=== PATIENT | male | born 1940 | race Caucasian/White ===

== ENCOUNTER 2016-08-26 10:45 | Inpatient (IN) | payer MEDICARE, OTHER ==
--- NOTE | ~2016-08-26 | DS ---
Discharge Summary [address] [facility] [place] [address] NAME: VENUS DENNEY : 40 STATUS : DIS IN PAT#: [id number] AGE: 76 ADM/REG DATE : 08/26/16 MR#: [id number] REPORT SERV DATE: 08/29/16 DICTATED BY: BRUNA DE LEON DATE: 08/28/16 REPORT STATUS : Draft TRANSCRIBED BY: MODL DATE: 08/28/16 ADMISSION DATE: 08/26/2016 DISCHARGE DATE: 08/28/2016 PRINCIPAL DIAGNOSIS: Acute bronchitis with hypoxemic respiratory failure and fevers. SECONDARY DIAGNOSIS: Chronic kidney disease, stage 4, with metabolic acidosis and compensatory respiratory alkalosis. HISTORY OF PRESENT ILLNESS: Please see Dr. Matt' dictation on 08/26/2016. HOSPITAL COURSE: Admitted with acute respiratory failure, fever, cough, concern for pneumonia, placed on broad-spectrum antibiotics. Based on a portable chest x-ray of questionable quality, a PA and lateral chest x-ray was done the following day which revealed no actual infiltrates whatsoever. The patient meanwhile defervesced. His antibiotics were simplified. He was put on oral steroids. No further wheezing. He was, however, found to have significant metabolic acidosis, which although well compensated, would benefit from bicarbonate supplementation and close followup with Dr. Florian as the patient had been on dialysis in the past. There were no other dialysis indications, and the patient was satisfactory. He met the maximum benefit of hospitalization by 3:30. Oral azithromycin for three additional days and prednisone for three additional days as well. Robitussin with codeine cough suppressant was given, and he was recommended to try home remedies for his acute bronchitis including Vicks VapoRub, portable humidifiers, and hot toddies. He will follow with Dr. Iftikhar Kong in one week and with Dr. Florian in two to four weeks. RUBI/JAMARCUS Bruna De Leon M.D. / [id number] CC: Can Monterroso M.D.
--- NOTE | ~2016-08-26 | HP ---
History And Physical [address] [id number] [facility] [place]. [address] NAME: VENUS DENNEY : 40 STATUS : ADM IN [facility]#: [id number] AGE: 76 ADM/REG DATE : 08/26/16 MR#: [id number] REPORT SERV DATE: 08/27/16 DICTATED BY: PHIL MATT DATE: 08/26/16 REPORT STATUS : Draft TRANSCRIBED BY: JAMARCUS DATE: 08/26/16 DATE OF ADMISSION: 08/26/2016 CHIEF COMPLAINT: Cough. HISTORY OF PRESENT ILLNESS: The patient is a very pleasant 76-year-old white male. He has a history of CAD, previous pacemaker placement, and stage 4 chronic kidney disease. He actually ended up on dialysis in 2013 after his CABG. He had a fistula placed in the left arm. He was on dialysis until 06/2015. He has been off dialysis now since then and has done fairly well. He states for about a month, he was sick, he saw his PCP bout three to four weeks ago and got an antibiotic, some cough syrup, and a shot. He got better and then over the last several days, he started to cough again. He states he has been coughing extensively. It got worse yesterday when he worked outside. He has been wheezing. He has scant sputum production. He does not recall a fever, but he had a fever this morning in the ER at 101.5, I documented it myself. He denies nausea or vomiting. Denies abdominal pain. He does not have chest pain. He has had some pain with coughing. This morning, he tried to put his pants on and slid out of bed onto the floor and was so weak he could not get up, so EMS was called. He does not wear oxygen, but he previously smoked for about 25 years. He currently dips tobacco. He did get a flu shot. He has had a mild sore throat. No real headache and no myalgias. PAST MEDICAL HISTORY: 1. CAD, history of CABG. 2. CKD stage 4, previously on dialysis with left-sided arm fistula. 3. Hypertension. 4. Hyperlipidemia. 5. Secondary hyperparathyroidism. 6. Gout. 7. GERD. 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 9. Pacemaker placement. SOCIAL HISTORY: Previous tobacco use, quit about 20 years ago. Dips tobacco currently. Does not drink alcohol. He is , his is at bedside. FAMILY HISTORY: Negative for CKD. ALLERGIES: POSITIVE FOR HEPARIN. PAST SURGICAL HISTORY: He has had a CABG, a fistula placed in his left arm, pacemaker placement, and multiple stents. HOME MEDICATIONS: Reviewed and attached. REVIEW OF SYSTEMS: Full 10-point review of systems obtained, pertinent positives mentioned in the HPI. History And Physical [address] [address] NAME: VENUS DENNEY : 40 STATUS : ADM IN [facility]#: [id number] AGE: 76 ADM/REG DATE : 08/26/16 MR#: [id number] REPORT SERV DATE: 08/27/16 DICTATED BY: PHIL MATT DATE: 08/26/16 REPORT STATUS : Draft TRANSCRIBED BY: JAMARCUS DATE: 08/26/16 PHYSICAL EXAMINATION: VITAL SIGNS: He is currently about 95/40 with the pulse in the 80s, respiratory rate 20, sats are 94% on room air. GENERAL: Well-developed white male, coughing extensively. HEENT: Normocephalic and atraumatic. Throat is clear. NECK: Supple. HEART: Regular rate and rhythm with a 2/6 systolic ejection murmur. LUNGS: Grossly, he has wheezing, expiratory in all lung reed. He has some discrete crackles at the bases bilaterally, right greater than left. ABDOMEN: Soft, nontender, and nondistended. EXTREMITIES: Warm and dry. He has no peripheral edema. No rashes. Pulses are 2+ at the feet. LABORATORY AND X-RAY DATA: White count is 9, H and H 14 and 42, platelets are 144. ABG, 7.41/31/. Flu swab is negative. CMP: Sodium 144, potassium 4.2, chloride 109, CO2 of 23, BUN and creatinine 31 and 3.86, glucose is 82. LFTs are normal. Chest x-ray portable shows some mild cardiomegaly and a pacemaker, but no obvious infiltrates. EKG shows a paced rhythm. ASSESSMENT/PLAN: 1. Fever with cough, certainly worrisome for pneumonia given he has a fever of 101.5. We will cover him with Rocephin and azithromycin. We will do blood cultures, sputum cultures and check a procalcitonin. We will hydrate him overnight. Given that he has some pretty significant wheezing and coughing, I am going to treat him with some DuoNeb and Solu-Medrol. I am certain that he has some component of chronic obstructive pulmonary disease as he does have a history of longstanding tobacco abuse in the past. 2. Hypotension, mild. We will give him a bolus now. We will hydrate him overnight, but we will be cautious. We will follow his blood pressure, kidney function, and urine output. 3. Chronic kidney disease stage 4. It appears his creatinine is currently at baseline. He was 3.80 in March. We will do serial labs and follow closely, avoid all possible nephrotoxic agents and really, he does all drugs. 4. History of heparin-induced thrombocytopenia. We will avoid all heparin products. I think given that he also has stage 4 CKD, it will be difficult to give him any of the approved anticoagulants. 5. Coronary artery disease with history of CABG. 6. History of pacer. 7. Disposition, pending above. JOI/JAMARCUS Phil Matt M.D. History And Physical [address] [address] NAME: VENUS DENNEY : 40 STATUS : ADM IN [facility]#: [id number] AGE: 76 ADM/REG DATE : 08/26/16 MR#: [id number] REPORT SERV DATE: 08/27/16 DICTATED BY: PHIL MATT DATE: 08/26/16 REPORT STATUS : Draft TRANSCRIBED BY: JAMARCUS DATE: 08/26/16 / [id number] CC: Can Monterroso M.D. Mandeep Grewal, M.D. R. Henry Williams, M.D.
[~2016-08-26 10:45] MED LIST: ALEVE220 MG PO; ALLEGRA180 PO; ASAB PO; BEN25 PO; C25; CLARIT10 PO; CYANO1000T PO; EFFIENT10 PO; LIPITOR40 PO; LOP25; LOP25 PO; LOP50 PO; METAMUCIL CAN7 OZ PO; NEUR100 PO; PCET PO; PLAVIX PO; STOOL SOFTEN100 MG PO; Vitamin B-Twelve PO; ZOCOR20 PO; [UNRECOGNIZED DRUG - REMARK]
[2016-08-26] MEDS ORDERED: TESS PO (10:50)
[2016-08-26] MEDS ORDERED: BRILINTA90 MG PO (10:50)
[2016-08-26] MEDS ORDERED: NEUR100 PO (10:50)
[2016-08-26] MEDS ORDERED: THERGRANM PO (10:50)
[2016-08-26 11:03] LABS: BASOPHILS 0.3 %; BASOPHILS ABSOLUTE 0.03 10/3/uL (0.0-0.16); EOSINOPHILS 2.5 %; EOSINOPHILS ABSOLUTE 0.23 10/3/uL (0.0-0.53); IMMATURE GRANULOCYTES 0.5 %; IMMATURE GRANULOCYTES ABSOLUTE 0.05 10/3/uL (0.0-0.11); LYMPHOCYTES 16.2 %; LYMPHOCYTES ABSOLUTE 1.51 10/3/uL (0.67-4.30); MANUAL DIFF NO %; MEAN CORPUS HGB CONC 33.3 g/dL (32.0-36.0); MEAN CORPUSCULAR HEMOGLOB 33.5 pg (26.0-34.0); MEAN CORPUSCULAR VOLUME 100.5 fL (80-100); MEAN PLATELET VOLUME 10.9 fL (9.2-13.0); MONOCYTES 15.7 %; MONOCYTES ABSOLUTE 1.46 10/3/uL (0.21-1.20); NEUTROPHILS 64.8 %; NEUTROPHILS ABSOLUTE 6.02 10/3/uL (2.02-8.40); PLATELET COUNT 144 10/3/uL (150-400); RBC DISTRIBUTION WIDTH 14.8 % (12.0-16.0); RED CELL COUNT 4.18 10/6/uL (4.7-6.1); WHITE BLOOD CELLS 9.3 10/3/uL (4.5-10.5)
[2016-08-26 11:05] LABS: BE (BASE EXCESS) -4.2 MEQ/L (0 +/- 2.5); CARBOXYHEMOGLOBIN 1.5 % (0-3); HCO3 (ACTUAL BICARBONATE) 19.3 MEQ/L (23-27); HEMOBLOGIN CONTENT 14.1 G/DL (14-18); INSTRUMENT SERIAL # 8087; METHEMOGLOBIN 0.4 % (0-3); O2 CONTENT 18.3 VOL% (18-24); OPERATOR ID 14382; PCO2 (CO2 TENSION) 31 MMHG (35-45); PO2 (O2 TENSION) 68 MMHG (79-93); SAMPLE Arterial; pH 7.41 (7.37-7.43)
[2016-08-26 11:06] LABS: ALLENS TEST Pos
[2016-08-26 11:15] LABS: INFLUENZA A SCREEN NEGATIVE (NEGATIVE); INFLUENZA B SCREEN NEGATIVE (NEGATIVE)
[2016-08-26 11:25] LABS: A/G RATIO 1.1 (0.7-1.9); ALBUMIN 3.6 G/DL (3.5-5.0); ALKALINE PHOSPHATASE 68 U/L (45-117); BUN (BLOOD UREA NITROGEN) 31 MG/DL (6-23); CALCIUM, SERUM 8.9 MG/DL (8.5-10.4); CHLORIDE, SERUM 109 MMOL/L (96-112); CO2 (CARBON DIOXIDE) 23 MMOL/L (24-34); CREATININE 3.86 MG/DL (0.70-1.30); GFR AFRICAN AMERICAN 16 ML/MIN (>=60); GFR NON AFRICAN AMERICAN 14 ML/MIN (>=60); GLOBULIN 3.4 G/DL (2.5-4.1); GLUCOSE, SERUM 82 MG/DL (60-99); POTASSIUM, SERUM 4.2 MMOL/L (3.5-5.3); SGOT(AST) 18 U/L (5-40); SGPT(ALT) 19 U/L (5-65); SODIUM, SERUM 144 MMOL/L (135-148); TOTAL BILIRUBIN 1.6 MG/DL (0-1.2)
[2016-08-27 06:06] LABS: CALCIUM, SERUM 8.1 MG/DL (8.5-10.4); CHLORIDE, SERUM 112 MMOL/L (96-112); CREATININE 3.76 MG/DL (0.70-1.30); GFR AFRICAN AMERICAN 17 ML/MIN (>=60); GFR NON AFRICAN AMERICAN 15 ML/MIN (>=60); SODIUM, SERUM 142 MMOL/L (135-148)
[2016-08-27 06:08] LABS: BUN (BLOOD UREA NITROGEN) 40 MG/DL (6-23); CO2 (CARBON DIOXIDE) 13 MMOL/L (24-34); GLUCOSE, SERUM 167 MG/DL (60-99)
[2016-08-27 06:41] LABS: BE (BASE EXCESS) -9.6 MEQ/L (0 +/- 2.5); CARBOXYHEMOGLOBIN 0.3 % (0-3); HEMOBLOGIN CONTENT 14.1 G/DL (14-18); INSTRUMENT SERIAL # 35151; METHEMOGLOBIN 0.4 % (0-3); O2 CONTENT 18.5 VOL% (18-24); OPERATOR ID 17370; PCO2 (CO2 TENSION) 22 MMHG (35-45); PO2 (O2 TENSION) 68 MMHG (79-93); SAMPLE Arterial; pH 7.39 (7.37-7.43)
[2016-08-27 07:13] LABS: BASOPHILS 0 %; EOSINOPHILS 0 %; HEMATOCRIT 38.9 % (40.0-51.0); HEMOGLOBIN 13.1 g/dL (13.6-17.8); IMMATURE GRANULOCYTES 0.4 %; IMMATURE GRANULOCYTES ABSOLUTE 0.03 10/3/uL (0.0-0.11); LYMPHOCYTES 5.6 %; LYMPHOCYTES ABSOLUTE 0.44 10/3/uL (0.67-4.30); MEAN CORPUS HGB CONC 33.7 g/dL (32.0-36.0); MEAN CORPUSCULAR HEMOGLOB 33.2 pg (26.0-34.0); MEAN CORPUSCULAR VOLUME 98.7 fL (80-100); MEAN PLATELET VOLUME 10.9 fL (9.2-13.0); MONOCYTES 3.1 %; MONOCYTES ABSOLUTE 0.24 10/3/uL (0.21-1.20); NEUTROPHILS 90.9 %; NEUTROPHILS ABSOLUTE 7.09 10/3/uL (2.02-8.40); PLATELET COUNT 116 10/3/uL (150-400); RBC DISTRIBUTION WIDTH 14.7 % (12.0-16.0); RED CELL COUNT 3.94 10/6/uL (4.7-6.1); WHITE BLOOD CELLS 7.8 10/3/uL (4.5-10.5)
[2016-08-27 07:15] LABS: MANUAL DIFF NO %
[2016-08-28 03:23] LABS: BE (BASE EXCESS) -10.5 MEQ/L (0 +/- 2.5); CARBOXYHEMOGLOBIN 0.3 % (0-3); HCO3 (ACTUAL BICARBONATE) 13.8 MEQ/L (23-27); HEMOBLOGIN CONTENT 13.9 G/DL (14-18); INSTRUMENT SERIAL # 35151; METHEMOGLOBIN 0.5 % (0-3); O2 CONTENT 18.6 VOL% (18-24); PCO2 (CO2 TENSION) 27 MMHG (35-45); PO2 (O2 TENSION) 84 MMHG (79-93); SAMPLE Arterial; pH 7.33 (7.37-7.43)
[2016-08-28 05:36] LABS: CALCIUM, SERUM 8.8 MG/DL (8.5-10.4); CHLORIDE, SERUM 109 MMOL/L (96-112); CREATININE 3.81 MG/DL (0.70-1.30); GFR AFRICAN AMERICAN 17 ML/MIN (>=60); GFR NON AFRICAN AMERICAN 14 ML/MIN (>=60); POTASSIUM, SERUM 4.3 MMOL/L (3.5-5.3); SODIUM, SERUM 139 MMOL/L (135-148)
[2016-08-28 05:45] LABS: BUN (BLOOD UREA NITROGEN) 55 MG/DL (6-23); CO2 (CARBON DIOXIDE) 15 MMOL/L (24-34); GLUCOSE, SERUM 126 MG/DL (60-99); PHOSPHORUS, SERUM 4.3 MG/DL (2.5-4.5)
[2016-08-28] MEDS ORDERED: ZITH250 PO (10:30)
[2016-08-28] MEDS ORDERED: COMBIVENT RESPIM4 GM INH (10:32)
[2016-08-28] MEDS ORDERED: SODBICAR10 PO (10:34)
[2016-08-28] MEDS ORDERED: GGEXPUD PO (10:37)
[2016-08-31] MEDS ORDERED: MUCINEX600 MG PO (12:44)
[2016-08-31] MEDS ORDERED: P20 PO (12:47)
[2016-08-31] MEDS ORDERED: ALB2 PO (12:49)
[2016-08-31] MEDS ORDERED: DEMA20 PO (12:51)
[2016-08-31] MEDS ORDERED: ROBITUSS23 PO (12:52)
== END 2016-08-28 11:45 | disposition home or self-care (01) | DRG 189 ==
LOC: ER 10:45 → 7NO 13:55
PROVIDERS: Emergency Medicine; Internal Medicine
DX: J96.01 Acute respiratory failure with hypoxia (principal); E87.4 Mixed disorder of acid-base balance; N18.4 Chronic kidney disease, stage 4 (severe); N25.81 Secondary hyperparathyroidism of renal origin; J20.9 Acute bronchitis, unspecified; I25.10 Atherosclerotic heart disease of native coronary artery without angina pectoris; I12.9 Hypertensive chronic kidney disease with stage 1 through stage 4 chronic kidney disease, or unspecified chronic kidney disease; M10.9 Gout, unspecified; K21.9 Gastro-esophageal reflux disease without esophagitis; E78.5 Hyperlipidemia, unspecified; Z95.1 Presence of aortocoronary bypass graft; Z87.891 Personal history of nicotine dependence; Z95.5 Presence of coronary angioplasty implant and graft; Z95.0 Presence of cardiac pacemaker; Z88.8 Allergy status to other drugs, medicaments and biological substances
CPT/HCPCS: 36600; 71010; 71020; 80048; 80053; 82805; 82962; 83605; 83735; 84100; 84145; 85025; 87040; 87205; 87804; 93005; 94640; 96365; 96375; 99291; A9270-GY; J0456; J1956; J2310; J2930